=== PATIENT | male | born 2005 | race Two or more races ===

== ENCOUNTER 2023-11-28 04:09 | Day surgery (SDC) | payer OTHER ==
[2023-11-21 11:36] VITALS: BMI 25.1
[2023-11-28] MEDS ORDERED: BUPIVACAINE HCL/PF 0.25% (2.5MG/ML) 10 ML VIAL ONE (08:48)
[2023-11-28] MEDS ORDERED: PROPOFOL 20 ML ONE ×3 (08:48→10:19)
[2023-11-28] MEDS ORDERED: MIDAZOLAM HCL 2 MG/2 ML SINGLE DOSE VIAL ONE (08:48)
[2023-11-28] MEDS ORDERED: INDOCYANINE GREEN 25 MG/10 ML VIAL IVPUSH ONE (09:05)
[2023-11-28] MEDS: cefOXitin SODIUM 2 GM VIAL (RESTRICTED TO ID) IVPB ONE (09:15)
[2023-11-28] MEDS ORDERED: CEFOXITIN SODIUM 1 GM IVPB ONE (09:19)
[2023-11-28] MEDS ORDERED: HEPARIN NA (PORCINE) 5,000 UNITS/ML 1ML VIAL ONE (09:19)
[2023-11-28] MEDS ORDERED: cefOXitin SODIUM 2 GM VIAL (RESTRICTED TO ID) IVPB ONE (09:19)
[2023-11-28] MEDS: BUPIVACAINE HCL/PF 0.25% (2.5MG/ML) 10 ML VIAL IJ ONE ×2 (09:30)
[2023-11-28] MEDS ORDERED: ROCURONIUM BROMIDE 50 MG/5 ML SYRINGE ONE (10:03)
[2023-11-28] MEDS ORDERED: LIDOCAINE HCL/PF 2% SDV 5ML VIAL ONE (10:05)
[2023-11-28] MEDS ORDERED: SUGAMMADEX SODIUM 200 MG/2 ML VIAL ONE (10:07)
[2023-11-28] MEDS ORDERED: ONDANSETRON 4 MG/2 ML VIAL ONE (10:07)
[2023-11-28] MEDS ORDERED: ONDANSETRON 4 MG/2 ML VIAL IVPUSH PRN (11:03)
[2023-11-28] MEDS ORDERED: LACTATED RINGERS SOLUTION 1,000 ML IV SCH (11:15)
[2023-11-28 12:33] VITALS: RESP 16; TEMP 97.5
[2023-11-28] MEDS ORDERED: oxyCODONE HCL 5 MG TABLET ONE (13:24)
[2023-11-28] MEDS: oxyCODONE HCL 5 MG TABLET PO PRN (13:29)
[2023-11-28 14:40] VITALS: BP 120/70; PULSE 70
== END 2023-11-28 14:41 | disposition home or self-care (01) ==
LOC: JASU-SURG 04:09 → EDBD 13:15 → JASU-SURG 14:41
PROVIDERS: ATTEND Surgery
PROC: 0FT44ZZ Resection of Gallbladder, Percutaneous Endoscopic Approach (ICD-10-PCS; principal; 2023-11-28 09:00)
DX: K80.10 Calculus of gallbladder with chronic cholecystitis without obstruction (principal)
CPT/HCPCS: 88304-TC; 94760; J1644